=== PATIENT | female | born 1945 | race Caucasian/White ===

== ENCOUNTER → 2016-08-24 09:13 | Outpatient (CLI) | payer MEDICARE, OTHER ==
[2013-11-20 01:09] VITALS: BMI 24.2
[~2016-08-24 09:13] MED LIST: ALDACTONE50 MG PO; CIPRO500 MG PO; FLAGYL500 MG PO; FUROSEMIDE40 MG PO; KENALOG 0.1 % 115 GM TOPICAL; LEVSIN/ANASP0.125 MG PO; LOPRESSOR25 MG PO; MINERAL OIL25 ML OR; MIRALAX17 GM PO; RIBASPHERE200 MG PO; VALTREX500 MG PO; ZEPATIER PO; ZOFRAN4 MG PO
[2016-10-05 07:11] VITALS: BMI 20.7
== END | disposition home or self-care (01) ==
LOC: D.CT 09:13
DX: R93.5 Abnormal findings on diagnostic imaging of other abdominal regions, including retroperitoneum (principal)

== ENCOUNTER → 2016-09-23 08:18 | Outpatient (CLI) | payer MEDICARE, OTHER ==
[2013-11-20 01:09] VITALS: BMI 24.2
[2016-09-26 12:18] VITALS: BMI 21.6
== END | disposition home or self-care (01) ==
LOC: D.MRI 08:18
DX: K76.89 Other specified diseases of liver (principal)

== ENCOUNTER 2016-09-26 09:09 | Day surgery (SDC) | payer MEDICARE, OTHER ==
[~2016-09-26] VITALS: Ht 162.6 cm; Wt 57.3 kg
[~2016-09-26 09:09] MED LIST changes: -FUROSEMIDE40 MG PO; -KENALOG 0.1 % 115 GM TOPICAL; -RIBASPHERE200 MG PO; -ZEPATIER PO
[2016-09-26] MEDS ORDERED: FUROSEMIDE40 MG PO (12:00)
[2016-09-26] MEDS ORDERED: RIBASPHERE200 MG PO (12:00)
[2016-09-26] MEDS ORDERED: ZEPATIER PO (12:01)
[2016-09-26] MEDS ORDERED: KENALOG 0.1 % 115 GM TOPICAL (12:02)
[2016-09-26 12:18] VITALS: BP 124/63; Ht 162.6 cm; Wt 57.3 kg
[2016-09-26 12:52] LABS: BASOPHILS 1.1 % (0-2); EOSINOPHILS 2.1 % (0-7); HEMATOCRIT 38.7 % (36.0-48.0); HEMOGLOBIN 12.7 g/dL (12-16); IMMATURE GRANULOCYTES 0.2 % (0-5); MCHC 32.8 g/dL (31.0-37.0); MCV 97.5 fL (80.0-100.0); MONOCYTES 11.4 % (2-11); NEUTROPHILS 69.2 % (40-80); RBC 3.97 10x6/uL (4.00-5.40); RDW 12.9 % (11.5-14.5); WBC 4.4 10x3/uL (4.8-10.8)
[2016-09-26 12:53] LABS: PLATELET COUNT 252 10x3/uL (130-400)
[2016-09-26 13:07] LABS: APTT 34.8 SECONDS (22.8-39.4); INR 1.15 (0.85-1.17); PROTIME 14.6 SECONDS (11.6-15.0)
[2016-09-26 13:11] LABS: ALBUMIN 3.2 g/dL (3.4-5.0); ALKALINE PHOSPHATASE 110 U/L (46-116); ALT (SGPT) 36 U/L (10-68); CALC OSMOLALITY 270 mosm/kg (275-300); CALCIUM 8.7 mg/dL (8.5-10.1); CARBON DIOXIDE 26.5 mmol/L (21.0-32.0); CHLORIDE - SERUM 100 mmol/L (98-107); CREATININE - SERUM 0.7 mg/dL (0.6-1.3); GLUCOSE 94 mg/dL (74-106); POTASSIUM - SERUM 3.8 mmol/L (3.5-5.1); PROTEIN - SERUM 7.7 g/dL (6.4-8.2); SODIUM 136 mmol/L (136-145); UREA NITROGEN 9 mg/dL (7-18); eGFR NON AFRICAN AMERICAN 88 mL/min (90-120)
--- NOTE | 2016-09-26 15:05 | NUR ---
DISCHARGE INSTRUCTIONS REVIEWED WITH PATIENT, RIGHT FOREARM PIV DC'D WITH TIP INTACT. PATIENT DRESSING IN PERSONAL CLOTHING
--- NOTE | 2016-09-26 15:35 | NUR ---
DISCHARGED HOME VIA WHEELCHAIR TO PRIVATE VEHICLE WITH DAUGHTER
--- NOTE | 2016-09-27 10:00 | OP ---
PATIENT NAME: CHAPO FERNANDES MEDICAL RECORD: [id number] :49 LOCATION:D.OPS ADMISSION DATE: SURGEON: SANTI STEWART DO DATE OF OPERATION: 09/26/2016 PROCEDURE: Colonoscopy with biopsies. INDICATIONS FOR PROCEDURE: Hematochezia and hemorrhoids. SCOPE: [employer] video pediatric colonoscope. MEDICATIONS: Propofol 560 mg IV per anesthesia. ESTIMATED BLOOD LOSS: Less than 3 cc. FINDINGS: Informed consent was given. The patient was made comfortable with the above medication. After reaching an adequate level of sedation by slow IV push, the patient was placed on her left side. A digital rectal examination was performed and revealed some external hemorrhoids. The remainder of that digital rectal examination was normal. The scope was then advanced under direct visualization through the anus to the cecum. This was evidenced by appendiceal orifice and the ileocecal valve. The scope was then slowly withdrawn while the mucosa was carefully examined. There were some changes consistent with mild melanosis coli. Random biopsies were taken in the ascending colon to confirm this diagnosis. Other findings included severe diverticulosis of the descending and sigmoid colon. There were peridiverticular changes associated with the sigmoid colon, which made passage of the endoscope difficult. There were no polyps encountered this examination. On retroflexion of the colonoscope in the rectum, there were some small internal hemorrhoids, which were not bleeding. The scope was withdrawn from the patient in its entirety. The patient tolerated the procedure well and there were no complications. IMPRESSION: 1. Internal and external hemorrhoids, which were not bleeding. 2. Severe diverticulosis of the descending and sigmoid colon. 3. Melanosis coli, biopsies taken for confirmation. PLAN AND RECOMMENDATIONS: 1. Discharge home when recovery parameters are met. 2. Continue current medications. 3. High fiber diet. 4. Maintain regular soft bowel movements. 5. Consider supplementing diet with fiber 1-2 tablespoons daily. 6. Consider a surgical referral regarding the internal and external hemorrhoids. 7. Recall colonoscopy in 7 years for colon cancer screening purposes. TRANSINT:[id number] Voice Confirmation ID: [id number] DOCUMENT ID: [id number] OPERATIVE REPORT [id number] CHAPO FERNANDES SANTI STEWART DO at 1000 CC: [id number] DICTATION DATE: 09/26/16 5750 LIEN SEARCHER: 09/26/16 192 [facility] 09/26/[address] [facility] 191 [facility], [facility]901
== END 2016-09-26 15:35 | disposition home or self-care (01) ==
LOC: D.OPS 09:09
PROVIDERS: Anesthesiology
DX: K92.1 Melena (principal); I10 Essential (primary) hypertension; K21.9 Gastro-esophageal reflux disease without esophagitis; B19.20 Unspecified viral hepatitis C without hepatic coma; K64.4 Residual hemorrhoidal skin tags; K64.8 Other hemorrhoids; K57.90 Diverticulosis of intestine, part unspecified, without perforation or abscess without bleeding

== ENCOUNTER 2016-10-03 09:22 | Day surgery (SDC) | payer MEDICARE, OTHER ==
[~2016-10-03] VITALS: Ht 162.6 cm; Wt 52.3 kg
[~2016-10-03 09:22] MED LIST changes: +FUROSEMIDE40 MG PO; +KENALOG 0.1 % 115 GM TOPICAL; +RIBASPHERE200 MG PO; +ZEPATIER PO
[2016-10-03 11:08] LABS: BASOPHILS 2.3 % (0-2); EOSINOPHILS 3.4 % (0-7); HEMATOCRIT 37.9 % (36.0-48.0); HEMOGLOBIN 12.4 g/dL (12-16); IMMATURE GRANULOCYTES 0.2 % (0-5); MCH 32.5 pg (26.0-34.0); MCHC 32.7 g/dL (31.0-37.0); MCV 99.5 fL (80.0-100.0); MEAN PLATELET VOLUME 9.7 fL (7.4-10.4); MONOCYTES 8.5 % (2-11); NEUTROPHILS 66.6 % (40-80); PLATELET COUNT 258 10x3/uL (130-400); RBC 3.81 10x6/uL (4.00-5.40); RDW 13.9 % (11.5-14.5); WBC 5.3 10x3/uL (4.8-10.8)
[2016-10-03 11:14] LABS: ANION GAP 11.4 mmol/L (8-16); CALCIUM 8.8 mg/dL (8.5-10.1); CARBON DIOXIDE 28.1 mmol/L (21.0-32.0); CREATININE - SERUM 0.9 mg/dL (0.6-1.3); POTASSIUM - SERUM 3.5 mmol/L (3.5-5.1)
[2016-10-03 11:41] VITALS: BP 126/58; Ht 162.6 cm; Wt 52.3 kg
--- NOTE | 2016-10-03 14:10 | NUR ---
DISCHARGED HOME VIA WHEELCHAIR TO PRIVATE VEHICLE WITH DAUGHTER
--- NOTE | 2016-10-04 10:26 | OP ---
PATIENT NAME: CHAPO FERNANDES MEDICAL RECORD: [id number] :49 [facility] DATE: SURGEON: SANTI STEWART DO DATE OF OPERATION: 10/03/2016 PROCEDURE: EGD with biopsies. INDICATIONS FOR PROCEDURE: Dysphagia, heartburn, and nausea. SCOPE: [employer] video gastroscope. MEDICATIONS: Propofol 200 mg IV per anesthesia. ESTIMATED BLOOD LOSS: Less than 3 cc. FINDINGS: Informed consent was given. The patient was made comfortable with the above medication. After reaching an adequate level of sedation by slow IV push, the patient was placed on her left side. The endoscope was then advanced under direct visualization through the mouth to the second portion of the duodenum. The upper and middle thirds of the esophagus appeared normal. In the distal third of the esophagus, there was some small grade II esophageal varices without bleeding stigmata present. Just below this at the GE junction, there was some mild evidence of LA class A reflux induced esophagitis. There were no ring or stricture visualized throughout the entire esophagus. The endoscope was advanced into the stomach and retroflexed to view the cardia which revealed a small sliding hiatal hernia. The fundus and body of the stomach appeared normal other than some mild portal hypertensive gastropathy. In the antrum and prepyloric region of the stomach, there were a few shallow and superficial ulcerations. There were no bleeding stigmata associated with these ulcerations. Random gastric biopsies were taken to submit for histology and rule out H. pylori. The endoscope was advanced down into the bulb and second portion of the duodenum, both of which appeared normal. The scope was withdrawn from the patient. The patient tolerated the procedure well and there were no complications. IMPRESSION: 1. Grade II esophageal varices without bleeding stigmata. 2. Reflux esophagitis, LA class A. 3. Small sliding hiatal hernia. 4. Gastric ulcers, which were not bleeding and showed no bleeding stigmata. 5. Mild portal hypertensive gastropathy. PLAN AND RECOMMENDATIONS: 1. Discharge home when recovery parameters are met. 2. Schedule barium esophagram regarding the dysphagia. 3. Antacids will be beneficial in her case based on her symptomatology and her esophagitis as well as the gastric ulcers. This however could prevent absorption of her current treatment for her hepatitis C. This will need to be discussed with Dr. Varela before giving any antacid therapy. 4. We recommend repeat EGD in 1 year for surveillance of esophageal varices. 5. Further recommendations depending on findings at time of barium esophagram. 6. Of note, the patient is scheduled for a biopsy of a liver mass later this week. This will also influence decision to moving forward as far as surveillance endoscopies and further workup of conditions. OPERATIVE REPORT [id number] CHAPO FERNANDES TRANSINT:[id number] Voice Confirmation ID: [id number] DOCUMENT ID: [id number] SANTI STEWART DO at 1026 CC: [id number] DICTATION DATE: 10/03/16 1300 PLASTIC PROCESS TECHNICIAN: 10/03/16 2141 [facility] 10/03/16 [facility] [address] [place] [address]
== END 2016-10-03 14:10 | disposition home or self-care (01) ==
LOC: D.OPS 09:22
PROVIDERS: Anesthesiology
DX: R13.10 Dysphagia, unspecified (principal); I85.00 Esophageal varices without bleeding; K44.9 Diaphragmatic hernia without obstruction or gangrene; K25.9 Gastric ulcer, unspecified as acute or chronic, without hemorrhage or perforation; K76.6 Portal hypertension; K31.89 Other diseases of stomach and duodenum; I10 Essential (primary) hypertension; I25.10 Atherosclerotic heart disease of native coronary artery without angina pectoris; B19.20 Unspecified viral hepatitis C without hepatic coma; Z01.812 Encounter for preprocedural laboratory examination

== ENCOUNTER 2016-10-05 05:25 | Outpatient (CLI) | payer MEDICARE, OTHER ==
[~2016-10-05] VITALS: Ht 160 cm; Wt 53.2 kg
[2016-10-05 06:55] LABS: BASOPHILS 0.4 % (0-2); EOSINOPHILS 5.9 % (0-7); HEMATOCRIT 35.1 % (36.0-48.0); HEMOGLOBIN 11.4 g/dL (12-16); IMMATURE GRANULOCYTES 0.2 % (0-5); LYMPHOCYTES 16.2 % (15-50); MCH 32.1 pg (26.0-34.0); MCHC 32.5 g/dL (31.0-37.0); MCV 98.9 fL (80.0-100.0); MEAN PLATELET VOLUME 9.7 fL (7.4-10.4); MONOCYTES 12.6 % (2-11); NEUTROPHILS 64.7 % (40-80); PLATELET COUNT 238 10x3/uL (130-400); RBC 3.55 10x6/uL (4.00-5.40); RDW 13.7 % (11.5-14.5); WBC 4.9 10x3/uL (4.8-10.8)
[2016-10-05 07:11] VITALS: BP 143/67; Ht 160 cm; Wt 53.2 kg
[2016-10-05 07:14] LABS: ANION GAP 12.2 mmol/L (8-16); CALCIUM 8.4 mg/dL (8.5-10.1); CARBON DIOXIDE 25.1 mmol/L (21.0-32.0); CREATININE - SERUM 0.9 mg/dL (0.6-1.3); POTASSIUM - SERUM 3.3 mmol/L (3.5-5.1)
[2016-10-05 07:19] LABS: APTT 33.4 SECONDS (22.8-39.4); INR 1.22 (0.85-1.17); PROTIME 15.3 SECONDS (11.6-15.0)
--- NOTE | 2016-10-05 17:19 | NUR ---
0910--ALL VITAL SIGNS CHARTED ON POST PROCEDURE VITAL SIGN SHEET ON CHART. ISMA MCCARTHY 1300--IV DC'D, PT UP TO DRESS AT THIS TIME. ISMA MCCARTHY 1320--DISCHARGE INSTRUCTIONS GIVEN, PT VERBALIZES UNDERSTANDING. PT OFF UNIT VIA WC. ISMA MCCARTHY
== END 2016-10-05 13:20 | disposition home or self-care (01) ==
LOC: D.OPS 05:25 → D.CT 08:00 → D.OPS 08:00
PROVIDERS: Radiology Diagnostic Radiology
DX: K76.9 Liver disease, unspecified (principal); K74.69 Other cirrhosis of liver; B19.20 Unspecified viral hepatitis C without hepatic coma; R18.8 Other ascites

== ENCOUNTER 2016-11-02 09:02 | Outpatient (CLI) | payer MEDICARE, OTHER ==
[~2016-11-02] VITALS: Ht 160 cm; Wt 52.3 kg
[2016-11-02] VITALS (8 sets, daily range): BP systolic 105–147; BP diastolic 53–84; Ht 160 cm; Wt 52.3 kg
--- NOTE | ~2016-11-02 | HEMODYNAMI ---
PATIENT:CHAPO FERNANDES MEDICAL RECORD: [id number] : 49 LOCATION:[facility]# [id number] ADMISSION DATE: 11/02/16 Generatedon:11/02/201615:12 Patient name: CHAPO FERNANDES Patient #: [id number] SSN: : 1945 Date of study: 11/02/2016 Page: Of Hemodynamic Procedure Report Patient Data Patient Demographics Procedure consent was obtained First Name: CHAPO Gender: Female Last Name: DENA : 1945 [facility] Initial: J Age: 71 year(s) Patient #: [id number] Race: Unknown Additional ID: [id number] Contact details [address]: [address] [place] [address] State: [place] City: [facility] [place], [place] Zip code: [address] Admission Admission Data Admission Date: 11/02/2016 Admission Time: 9:02 Room #: [facility] Procedure Procedure Types Cath Procedure Peripheral Cath Diagnostic Procedure Miscellaneous Procedure Description Procedure Date Procedure Date: 11/02/2016 Procedure Start Time: 13:45 Procedure Staff Name Function Alejandro Eaton MD Performing Physician Raquel Almaraz RT Scrub Caitlin Oliver RN Nurse Apolinar Persaud RT Monitor Procedure Data Cath Procedure Fluoroscopy Diagnostic fluoroscopy Total fluoroscopy Time: time: 18.7 min 18.7 min Diagnostic fluoroscopy Total fluoroscopy dose: dose: 1033 mGy 1033 mGy Contrast Material Contrast Material Type Amount (ml) Isovue 300 97 Entry Location Entry Primary Successful Side Size Upsize Upsize Entry Closure Succes sful Closure Location (Fr) 1 (Fr) 2 (Fr) Remarks Device Remarks Femoral Right 5 Fr Exoseal artery Diagnostic catheters Device Type Used For End Catheter Placement Merit ULTRA BOLUS FLUSH 5Fr 65CM catheter Merit Impress 5Fr SIM 1 Catheter Procedure Medications Medication Administration Route Dosage Fentanyl I.V. 50 mcg Versed I.V. 1 mg Nitroglycerin IC/IA I.A. 250 mcg Fentanyl I.V. 50 mcg Versed I.V. 1 mg Hemodynamics Rest Heart Rate: 81 (bpm) Snapshots Pre Cath Intra NCS Post Cath Vital Signs Time Heart Resp SPO2 NIBP (mmHg) Rhythm Pain Sedation Rate (ipm) (%) Status Level (bpm) 13:28:24 90 15 95 120/46(100) NSR 0 (11) 10(A) , No pain 13:32:34 76 19 97 121/60(95) NSR 0 (11) 10(A) , No pain 13:36:44 77 21 94 122/60(99) NSR 0 (11) 10(A) , No pain 13:40:50 85 25 96 139/74(111) NSR 0 (11) 10(A) , No pain 13:45:08 80 17 93 125/56(102) NSR 0 (11) 10(A) , No pain 13:49:20 80 17 95 124/62(96) NSR 0 (11) 10(A) , No pain 13:53:30 79 16 93 118/63(94) NSR 0 (11) 10(A) , No pain 13:57:40 77 17 93 112/59(89) NSR 0 (11) 10(A) , No pain 14:01:48 73 17 93 113/57(79) NSR 0 (11) 10(A) , No pain 14:05:55 77 10 98 110/56(92) NSR 0 (11) 10(A) , No pain 14:10:03 75 13 96 113/56(92) NSR 0 (11) 10(A) , No pain 14:14:13 75 15 99 109/53(82) NSR 0 (11) 10(A) , No pain 14:18:19 74 15 96 116/59(90) NSR 0 (11) 10(A) , No pain 14:22:31 74 13 97 116/54(90) NSR 0 (11) 10(A) , No pain 14:26:43 76 13 95 102/53(68) NSR 0 (11) 9(A) , No pain 14:30:49 74 12 97 91/52(70) NSR 0 (11) 9(A) , No pain 14:34:50 72 10 97 102/54(77) NSR 0 (11) 9(A) , No pain 14:38:58 71 15 96 104/49(79) NSR 0 (11) 9(A) , No pain 14:43:02 75 13 96 108/59(79) NSR 0 (11) 9(A) , No pain 14:47:12 74 12 98 98/50(75) NSR 0 (11) 10(A) , No pain 14:51:16 74 12 99 108/56(84) NSR 0 (11) 10(A) , No pain 14:55:19 78 16 99 113/66(88) NSR 0 (11) 10(A) , No pain 14:59:27 73 12 99 110/60(86) NSR 0 (11) 10(A) , No pain 15:03:35 72 16 100 107/56(87) NSR 0 (11) 10(A) , No pain 15:07:39 99 114/65(92) NSR 0 (11) 10(A) , No pain Medications Time Medication Route Dose Verified Delivered Reason Notes Effec tiveness by by 13:50:14 Fentanyl I.V. 50 Caitlin Caitlin for sedation mcg Melody Oliver RN, RN 13:50:28 Versed I.V. 1 mg Caitlin Caitlin for sedation Melody Oliver RN, RN 14:23:03 Nitroglycerin I.A. 250 Caitlin Alejandro for IC/IA mcg Melody godinez RN, MD 14:25:05 Fentanyl I.V. 50 Caitlni Alejandro for sedation mcg Melody Eaton RN, MD 14:25:21 Versed I.V. 1 mg Caitlin Alejandro for sedation Melody Eaton RN, MD Procedure Log Time Note 13:18:23 Apolinar Persaud RT (R) (CV) sent for patient. Start room use. 13:18:34 Time tracking: Regular hours 13:18:40 Plan of Care:Hemodynamics will remain stable., Cardiac rhythm will remain stable., Comfort level will be maintained., Respiratory function will remain adequate., Patient/ family verbilizes understanding of procedure., Procedure tolerated without complication., Recovers from procedure without complications.. 13:18:48 Patient received from Outpatients to IR Alert and oriented. Tansferred to table in Supine position. 13:18:49 Correct patient and procedure confirmed by team. 13:18:51 Signed procedure consent form obtained from patient. 13:18:52 ECG and BP/O2 sat monitors applied to patient. 13:18:53 Full Disclosure recording started 13:18:53 - 13:18:57 H&P Date Dictated: 11/02/2016 Within 30 days and on chart.. 13:18:58 Pre-procedure instructions explained to patient. 13:18:58 Pre-op teaching completed and patient verbalized understanding. 13:19:00 Family in waiting room. 13:19:02 Patient NPO since Midnight. 13:22:55 Is the patient allergic to Iodine/contrast media? No. 13:22:58 Is patient on blood thinner?No 13:23:04 Patient diabetic? No. 13:23:05 - 13:23:05 ----Pre-sedation anethsthesia assessment.---- 13:23:09 Previous problem with sedation/anesthesia? No ? 13:23:10 Snore? Yes 13:23:12 Sleep apnea? No 13:23:13 Deviated septum? No 13:23:14 Opens mouth fully? Yes 13:23:15 Sticks out tongue? Yes 13:23:17 Airway obstruction? No ? 13:23:20 - 13:23:21 Dentures? No ? 13:23:22 - 13:25:42 Pre procedure: right dorsailis pedis pulse Doppler 13:25:47 Pre procedure: right posterior tibial pulse Doppler 13:25:55 Use device set IR Diagnostic 13:25:56 Sterile Angiographic Pack opened to sterile field. 13:25:57 Bag Decanter opened to sterile field. 13:25:57 Acist Manifold opened to sterile field. 13:25:58 Acist Hand Control opened to sterile field. 13:25:58 Acist Syringe opened to sterile field. 13:26:15 Sharps counted by scrub and verified by R.N. 13:26:15 Alarms reviewed by R. N. 13:26:19 Right groin area was prepped with chlora-prep and draped in sterile fashion 13:26:26 Patient pain scale 0/10 no pain. 13:26:40 IV patent on arrival in left hand with 0.9% NaCl at KVO. 13:27:10 Baseline sample Acquired. 13:27:10 Vital chart was started 13:27:14 Rhythm: sinus rhythm 13:40:52 Physician arrived 13:40:54 --------ALL STOP TIME OUT------ 13:40:55 Final Timeout: patient, procedure, and site verified with staff and physician. All members of the team are in agreement. 13:40:57 Right groin site verified by team. 13:41:08 Physical assessment completed. ASA score P 3 - A patient with severe systemic disease as per Alejandro Eaton MD. 13:41:12 Sedation plan: IV Moderate Sedation Versed, Fentanyl 13:45:04 Procedure started. 13:45:07 Local anesthetic to right femoral artery with Lidocaine 1% by Alejandro Eaton MD.INITIAL ACCESS ONLY 13:45:13 STOPCOCK 3-WAY LARGE BORE opened to sterile field. 13:45:13 TUBING, CONTRAST INJCTN HI PRES opened to sterile field. 13:45:14 Cook WellocitiesSON 145cm guide wire opened to sterile field. 13:45:14 Micropuncture VSI 4FR kit opened to sterile field. 13:45:15 Terumo 5Fr [place] Sheath opened to sterile field. 13:46:06 A 5 Fr sheath was inserted into the Right Femoral artery 13:50:14 Fentanyl 50 mcg I.V. was administered by Caitlin Oliver RN; for sedation; 13:50:28 Versed 1 mg I.V. was administered by Caitlin Oliver RN; for sedation; 13:52:21 A Discovery Machine ULTRA BOLUS FLUSH 5Fr 65CM catheter was advanced over the wire and used for . 13:52:36 [place] Sci TRANSEND STEERABLE guide wire opened to sterile field. 13:59:02 A Discovery Machine Impress 5Fr SIM 1 Catheter was advanced over the wire and used for . 13:59:06 RENEGADE HI-THA microcatheter opened to sterile field. 13:59:22 [place] Sci TRANSEND STEERABLE guide wire opened to sterile field. 13:59:23 Copilot Bleedback Control Valve opened to sterile field. 14:10:20 Terumo GT DOUBLE ANGLE .018 glide wire opened to sterile field. 14:23:03 Nitroglycerin IC/IA 250 mcg I.A. was administered by Alejandro Eaton MD; for vasodilation; 14:25:05 Fentanyl 50 mcg I.V. was administered by Alejandro Eaton MD; for sedation; 14:25:21 Versed 1 mg I.V. was administered by Alejandro Eaton MD; for sedation; 14:37:08 BEADS LC M1 100-300UM opened to sterile field. 14:37:11 BEADS LC M1 100-300UM opened to sterile field. 14:45:00 EMBO PARTICLES 250-355 MICRONS opened to sterile field. 14:51:45 Cordis 5Fr Exoseal opened to sterile field. 14:52:40 Sheath removed intact; hemostasis achieved with Exoseal to the Right Femoral artery. 14:54:07 Procedure ended.(Physican Out) 14:54:45 Fluoroscopy time 18.70 minutes. 14:54:52 Fluoroscopy dose: 1033 mGy 14:54:52 Flurop Dose total: 1033 14:55:22 Contrast amount:Isovue 300 97ml. 14:55:25 Sharps counted by scrub and verified by R.N. 14:55:29 Insertion/operative site no bleeding no hematoma. 14:55:33 Post-op/insertion site Right Femoral artery dressed using a 4 x 4 and Tegaderm. 14:55:36 Post right femoral artery:stable 14:55:38 Post Procedure Pulses reassessed and unchanged 14:55:42 Post-procedure physical assessment completed. ASA score P 3 - A patient with severe systemic disease as per Alejandro Eaton MD. 14:55:45 Post procedure rhythm: sinus rhythm 15:09:53 Procedure and supply charges have been captured, reviewed, submitted an d are correct. 15:09:54 Post procedure instruction explained to patient.Patient verbalizes understanding. 15:09:59 Report given to Med/Surg. 15:10:02 Patient transfered to Med/Surg with Bed. 15:12:01 Vital chart was stopped Device Usage Item Name Manufacture Quantity Catalog Number Hospital Part Current M inimal Lot# / Charge Number Stock Stock Serial# Code Sterile Cardinal 1 [id number] 5 Angiographic Health Pack Bag Decanter Microtek 1 [id number] 55890 260358 5 Medical Inc. Acist Acist Medical 1 31721 090202 402548 192740 5 Manifold Systems Inc Acist Hand Acist Medical 1 28683 280642 325903 796842 5 Control Systems Inc Acist Syringe Acist Medical 1 85524 872557 387607 596679 2 0 Systems Inc STOPCOCK [place] Medical 1 [id number] 356148 0151 667586 5 [id number] 3-WAY LARGE BORE TUBING, CliniCast 1 [id number] 235153 494923 273596 5 CONTRAST INJCTN HI PRES [facility] Medical 1 [id number] 131907 988868 5 [id number] 145cm guide wire Micropuncture VSI VASCULAR 1 [id number] 757544 269014 5 VSI 4FR kit SOLUTIONS Terumo 5Fr Terumo 1 FMH002 344936 824464 715258 4 0 [place] Sheath Discovery Machine ULTRA Discovery Machine Medical 1 [id number] 339303 383803 5 BOLUS FLUSH 5Fr 65CM catheter [place] Sci [place] 2 [id number] 822027 069912 5 [id number] TRANSEND Scientific STEERABLE guide wire Merit Impress Discovery Machine Medical 1 [id number] 798852 031224 647886 5 5Fr SIM 1 Catheter RENEGADE [place] 1 [id number] 256100 033049 5 [id number] HI-THA Scientific microcatheter Copilot [place] 1 4431471 074415 594830 071103 5 Bleedback Vascular Control Valve Terumo GT Terumo 1 [id number] 252500 475847 5 840740 DOUBLE ANGLE .018 glide wire BEADS LC M1 BIOCOMPATIBLES 2 [id number] 440637 801845 327691 5 100-300UM INC EMBO [place] 1 [id number] 157853 1713 588461 5 PARTICLES Scientific 250-355 MICRONS Cordis 5Fr Cardinal 1 EX500 844061 270419 175928 1 0 [id number] Exoseal Health Signature Audit [place] Stage Time Signature Unsigned Intra-Procedure 11/02/2016 Apolinar 3:11:58 PM Hung RT (R) (CV) Signatures Monitor : Apolinar Signature : Hung RT Date : Time : [facility] [address] [place] [address]
[2016-11-02 09:39] LABS: BASOPHILS 0.8 % (0-2); EOSINOPHILS 3.7 % (0-7); HEMATOCRIT 35.8 % (36.0-48.0); HEMOGLOBIN 11.2 g/dL (12-16); IMMATURE GRANULOCYTES 0.2 % (0-5); LYMPHOCYTES 14.8 % (15-50); MCH 32.3 pg (26.0-34.0); MCHC 31.3 g/dL (31.0-37.0); MCV 103.2 fL (80.0-100.0); MEAN PLATELET VOLUME 8.6 fL (7.4-10.4); MONOCYTES 13.6 % (2-11); NEUTROPHILS 66.9 % (40-80); PLATELET COUNT 262 10x3/uL (130-400); RBC 3.47 10x6/uL (4.00-5.40); RDW 14.6 % (11.5-14.5); WBC 5.1 10x3/uL (4.8-10.8)
[2016-11-02] MEDS ORDERED: ALDACTONE50 MG PO (09:51)
[2016-11-02 09:54] LABS: ANION GAP 10.7 mmol/L (8-16); CALCIUM 8.8 mg/dL (8.5-10.1); CARBON DIOXIDE 25.1 mmol/L (21.0-32.0); POTASSIUM - SERUM 3.8 mmol/L (3.5-5.1)
[2016-11-02] MEDS ORDERED: DULCOLAX STOOL100 MG PO (09:55)
[2016-11-02] MEDS ORDERED: GLYCERIN A1 SUPP.REC RC (09:55)
[2016-11-02 10:12] LABS: APTT 33.6 SECONDS (22.8-39.4); INR 1.2 (0.85-1.17); PROTIME 15.1 SECONDS (11.6-15.0)
[2016-11-02] MEDS ORDERED: VITAMIN D3400 UNI1 PO (10:32)
[2016-11-02] MEDS ORDERED: MULTIPLE VITAMI1 TA1 PO (10:32)
[2016-11-02] MEDS ORDERED: FERROUS SULFAT325 MG PO (10:33)
[2016-11-02 10:35] LABS: ALBUMIN 3.2 g/dL (3.4-5.0); BILIRUBIN - DIRECT 0.39 mg/dL (0.00-0.30); BILIRUBIN - INDIRECT 1.31 mg/dL (0.00-1.00); BILIRUBIN - TOTAL 1.7 mg/dL (0.2-1.3); PROTEIN - SERUM 7.9 g/dL (6.4-8.2)
--- NOTE | 2016-11-02 14:30 | NUR ---
RESTING IN BED WATCHING TV. AT BEDSIDE. DRESSING TO R GROIN CDI. +2 PEDAL PULSES BILAT. BED LOW, CALL LIGHT IN REACH, DENIES NEEDS. CPOC.
--- NOTE | 2016-11-02 15:30 | NUR ---
PT REC'D TO ROOM VIA BED. AAOX4. NO COMPLAINTS OF PAIN. 3L OF O2 VIA NC. PIV TO L AC FREE OF REDNESS AND SWELLING. DRESSING TO R GROIN CDI. +2 PEDAL PULSES BILAT. BRISK CAP REFILL <3 SECONDS. LAYING FLAT. VSS. BED LOW, CALL LIGHT IN REACH, DENIES NEEDS. CPOC.
--- NOTE | 2016-11-02 18:43 | NUR ---
ASSISTED PT ONTO BED VANESSA. ABLE TO VOID LARGE AMOUNT OF CLEAR SHIRIN URINE. BRET CARE DONE PER SELF. BED LOW, CALL LIGHT IN REACH, DENIES NEEDS. CPOC.
--- NOTE | 2016-11-02 19:25 | NUR ---
RECIEVED SHIFT REPORT. PT IS LYING IN BED. ALERT AND ORIENTED AND ABLE TO VERBALIZE NEEDS. IV IS PATENT AND SALINE LOC AT THIS TIME. PT IS AMBULATORY WITH ASSISTANCE. PT DENIES ANY PAIN AT THIS TIME. NO NEEDS ARE VERBALIZED AT THIS TIME. WILL CONTINUE TO MONITOR. SIDE RAILS ARE UP X 2. BED IS IN LOWEST POSITION. CALL LIGHT IS WITHIN REACH.
--- NOTE | 2016-11-02 21:44 | NUR ---
SHIFT ASSESSMENT COMPLETED. NIGHT MEDS GIVEN WITH NO PROBLEMS. PT REQUESTING PRN RESTORIL FOR INSOMNIA. ADMINISTERED PER ORDER. DENIES FURTHER NEEDS AT THIS TIME. WILL MONITOR. SIDE RAILS X 2. BED LOW. CALL LIGHT IN REACH.
[2016-11-03] VITALS: BP 98/40
[2016-11-03 04:00] VITALS: BP 122/62
[2016-11-03 05:55] LABS: ANION GAP 12.8 mmol/L (8-16); CALCIUM 8.3 mg/dL (8.5-10.1); POTASSIUM - SERUM 3.8 mmol/L (3.5-5.1)
[2016-11-03 07:53] VITALS: BP 120/58
--- NOTE | 2016-11-03 08:47 | NUR ---
PT ASSESSMENT COMPLETE AWAKE AND ALERT ORINETED X 3 LUNGS CLAER BIALTERALLY VOICES ALL NEEDS TO STAFF LUNGS CLAER BILATERALY HAS DRESSING INTACT TO RIGHT GROIN FROM CHEMO EMBELIZATION YESTERDAY DENEIS PAIN OR DISCOMFORT NO TNEDERNESS TO ABDOMINAL PALPATION.
--- NOTE | 2016-11-03 10:43 | NUR ---
PT RESTING IN BED AT THIS TIME, MAR MILLAN RN AT BEDSIDE. PT HAS NO COMPLAINTS OF PAIN OR DISCOMFORT AT THIS TIME. BED IN LOW POSITION AND CALL LIGHT WITHIN REACH. WILL CONTINUE TO MONITOR.
--- NOTE | 2016-11-03 11:51 | NUR ---
PT AWAITING DISCHARGE ORDERS RECIEVED. DWILL DISCHARGE PER ORDER. WITH FOLLOW UP APPT PER ORDER
--- NOTE | 2016-11-03 13:20 | NUR ---
PT DISCHARGED ALL DISCHARGE INSTRUCTIONS GIVEN AND UNDERSTANDING EXPRESSED FOR FOLLOW UP CARE.
== END 2016-11-03 13:21 | disposition home or self-care (01) ==
LOC: OBSVTIME → D.SDCHOLD 09:02 → D.OPS 09:02 → D.MS 09:02 → OBSVTIME 09:02 → D.SDCHOLD 09:02 → EDSTATUS 13:00 → D.SDCHOLD 13:00 → D.MS 15:31 → D.OPS 11-03 13:21 → D.MS 11-03 13:21
PROVIDERS: Radiology Diagnostic Radiology
DX: C22.0 Liver cell carcinoma (principal); K74.60 Unspecified cirrhosis of liver; B19.20 Unspecified viral hepatitis C without hepatic coma

== ENCOUNTER 2016-12-12 05:45 | Outpatient (CLI) | payer MEDICARE, OTHER ==
[~2016-12-12] VITALS: Ht 160 cm; Wt 52.3 kg
[~2016-12-12 05:45] MED LIST changes: +DULCOLAX STOOL100 MG PO; +FERROUS SULFAT325 MG PO; +GLYCERIN A1 SUPP.REC RC; +MULTIPLE VITAMI1 TA1 PO; +VITAMIN D3400 UNI1 PO
[2016-12-12] MEDS ORDERED: PROBIOTIC1 EAC1 PO (06:36)
[2016-12-12] MEDS ORDERED: ZANTAC150 MG PO (06:37)
[2016-12-12] MEDS ORDERED: ALDACTONE50 MG PO (06:38)
[2016-12-12] MEDS ORDERED: GAS-X180 MG PO (06:38)
[2016-12-12] MEDS ORDERED: FLUTICASONE PRO16 GM NASAL (06:41)
[2016-12-12] MEDS ORDERED: SUPER B COMPLE150 MG PO (06:41)
[2016-12-12] MEDS ORDERED: KENALOG 0.1 % 115 GM TOPICAL (06:44)
[2016-12-12 07:06] VITALS: BP 134/61; Ht 160 cm; Wt 52.3 kg
[2016-12-12 08:13] LABS: BASOPHILS 0.9 % (0-2); EOSINOPHILS 3.3 % (0-7); HEMATOCRIT 34.4 % (36.0-48.0); IMMATURE GRANULOCYTES 0.2 % (0-5); LYMPHOCYTES 12.9 % (15-50); MCH 32.6 pg (26.0-34.0); MCV 102.1 fL (80.0-100.0); MEAN PLATELET VOLUME 9.3 fL (7.4-10.4); MONOCYTES 15.8 % (2-11); NEUTROPHILS 66.9 % (40-80); PLATELET COUNT 215 10x3/uL (130-400); RBC 3.37 10x6/uL (4.00-5.40); WBC 4.5 10x3/uL (4.8-10.8)
[2016-12-12 08:21] LABS: APTT 33.3 SECONDS (22.8-39.4); INR 1.17 (0.85-1.17); PROTIME 14.8 SECONDS (11.6-15.0)
[2016-12-12 08:23] LABS: ANION GAP 17.3 mmol/L (8-16); CALCIUM 9.1 mg/dL (8.5-10.1); CARBON DIOXIDE 22.8 mmol/L (21.0-32.0); CREATININE - SERUM 0.9 mg/dL (0.6-1.3); POTASSIUM - SERUM 4.1 mmol/L (3.5-5.1)
--- NOTE | 2016-12-12 09:35 | NUR ---
RECEIVED FROM IR POST PARACENTESIS. RUQ DRESSING C/D/I, NO DRAINAGE NOTED. DENIES NAUSEA. REGULAR DIET SERVED. SEE FREQUENT VITAL SIGN SHEET FOR VITAL SIGNS.
== END 2016-12-12 11:30 | disposition home or self-care (01) ==
LOC: D.OPS 05:45 → D.SP 08:00 → D.OPS 11:30
PROVIDERS: Radiology Diagnostic Radiology
DX: K71.51 Toxic liver disease with chronic active hepatitis with ascites (principal); B19.20 Unspecified viral hepatitis C without hepatic coma

== ENCOUNTER → 2017-01-09 07:24 | Outpatient (CLI) | payer MEDICARE, OTHER ==
[2016-12-12 07:06] VITALS: BMI 20.4
[~2017-01-09 07:24] MED LIST changes: +FLUTICASONE PRO16 GM NASAL; +GAS-X180 MG PO; +PROBIOTIC1 EAC1 PO; +SUPER B COMPLE150 MG PO; +ZANTAC150 MG PO
== END | disposition home or self-care (01) ==
LOC: D.CT 07:24
PROVIDERS: Radiology Diagnostic Radiology
DX: C22.0 Liver cell carcinoma (principal)

== ENCOUNTER 2017-01-16 07:27 | Outpatient (CLI) | payer MEDICARE, OTHER ==
[~2017-01-16] VITALS: Ht 160 cm; Wt 50.0 kg
[2017-01-16] MEDS ORDERED: POTASSIUM99 M1 PO (09:36)
[2017-01-16 09:44] VITALS: BP 124/59; Ht 160 cm; Wt 50.0 kg
[2017-01-16 09:46] LABS: BASOPHILS 0.6 % (0-2); EOSINOPHILS 3.3 % (0-7); HEMATOCRIT 36.2 % (36.0-48.0); HEMOGLOBIN 11.5 g/dL (12-16); IMMATURE GRANULOCYTES 0.3 % (0-5); LYMPHOCYTES 14.1 % (15-50); MCH 32.8 pg (26.0-34.0); MCHC 31.8 g/dL (31.0-37.0); MCV 103.1 fL (80.0-100.0); MEAN PLATELET VOLUME 8.9 fL (7.4-10.4); MONOCYTES 14.4 % (2-11); NEUTROPHILS 67.3 % (40-80); PLATELET COUNT 193 10x3/uL (130-400); RBC 3.51 10x6/uL (4.00-5.40); RDW 12.9 % (11.5-14.5); WBC 3.6 10x3/uL (4.8-10.8)
[2017-01-16 09:53] LABS: ANION GAP 11.4 mmol/L (8-16); CALCIUM 8.5 mg/dL (8.5-10.1); CARBON DIOXIDE 25.9 mmol/L (21.0-32.0); POTASSIUM - SERUM 4.3 mmol/L (3.5-5.1)
[2017-01-16 10:10] LABS: APTT 33.1 SECONDS (22.8-39.4); INR 1.15 (0.85-1.17); PROTIME 14.6 SECONDS (11.6-15.0)
--- NOTE | 2017-01-16 16:21 | NUR ---
1515 IV DC'ED WITH CATH INTACT & 450ML LTC. DRESSING. Santa AKINS R.N. 1525 DRESSED. AWAKE & ALERT. GIVEN DISCHARGE INFORMATION INCLUDING: MED REC., D/C INSTRUCTIONS FOR CT GUIDED BIOPSY, D/C INSTRUCTIONS FOR ABDOMINAL PARACENTESIS, & [facility] [place] OPS D/C INSTRUCTIONS. PT VOICED UNDERSTANDING. WAITING FOR RIDE HOME. Santa BlancoNIsabela 1530 TO PRIVATE CAR PER WHEELCHAIR BY Angelia MUÑOZ R.N.. Santa AKINS R.N.
== END 2017-01-16 15:35 | disposition home or self-care (01) ==
LOC: D.OPS 07:27 → D.CT 08:00 → D.OPS 11:00 → D.SP 11:00 → D.OPS 15:35
PROVIDERS: Radiology Diagnostic Radiology
DX: K74.60 Unspecified cirrhosis of liver (principal); B19.20 Unspecified viral hepatitis C without hepatic coma; D13.4 Benign neoplasm of liver; Z01.812 Encounter for preprocedural laboratory examination

== ENCOUNTER → 2017-04-20 08:25 | Outpatient (CLI) | payer MEDICARE, OTHER ==
[2017-01-16 09:44] VITALS: BMI 19.5
[~2017-04-20 08:25] MED LIST changes: +POTASSIUM99 M1 PO
== END | disposition home or self-care (01) ==
LOC: D.CT 08:25
DX: C22.0 Liver cell carcinoma (principal)

== ENCOUNTER → 2017-07-05 07:57 | Outpatient (CLI) | payer MEDICARE, OTHER ==
[2017-01-16 09:44] VITALS: BMI 19.5
== END | disposition home or self-care (01) ==
LOC: D.CT 07:57
DX: C22.0 Liver cell carcinoma (principal); K74.60 Unspecified cirrhosis of liver

== ENCOUNTER → 2017-11-06 11:43 | Outpatient (CLI) | payer MEDICARE, OTHER ==
[2017-01-16 09:44] VITALS: BMI 19.5
[~2017-11-06 11:43] MED LIST changes: +BENADRYL25 MG PO
== END | disposition home or self-care (01) ==
LOC: D.CT 11:43
DX: C22.0 Liver cell carcinoma (principal); K74.60 Unspecified cirrhosis of liver

== ENCOUNTER → 2017-11-15 07:53 | Outpatient (CLI) | payer MEDICARE, OTHER ==
[2017-01-16 09:44] VITALS: BMI 19.5
[2017-11-15 09:15] LABS: ALBUMIN 3.9 g/dL (3.4-5.0); BILIRUBIN - DIRECT 0.21 mg/dL (0.00-0.30); BILIRUBIN - INDIRECT 0.54 mg/dL (0.00-1.00); BILIRUBIN - TOTAL 0.75 mg/dL (0.2-1.3); PROTEIN - SERUM 8.8 g/dL (6.4-8.2)
== END | disposition home or self-care (01) ==
LOC: D.LAB 07:53
PROVIDERS: Radiology Diagnostic Radiology
DX: C22.0 Liver cell carcinoma (principal)

== ENCOUNTER 2017-12-20 06:00 | Outpatient (CLI) | payer MEDICARE, OTHER ==
[~2017-12-20] VITALS: Ht 160 cm; Wt 50.9 kg
--- NOTE | ~2017-12-20 | HEMODYNAMI ---
PATIENT:CHAPO FERNANDES MEDICAL RECORD: [id number] : 49 LOCATION:[facility]# [id number] ADMISSION DATE: 12/20/17 Generatedon:12/20/201710:13 Patient name: CHAPO FERNANDES Patient #: [id number] SSN: : 1945 Date of study: 12/20/2017 Page: Of Hemodynamic Procedure Report Patient Data Patient Demographics Procedure consent was obtained First Name: CHAPO Gender: Female Last Name: DENA : 1945 [facility] Initial: J Age: 72 year(s) Patient #: [id number] Race: Unknown Additional ID: [id number] Contact details Address: [address] [place] [address] State: [place] City: [facility] Zip code: [address] Admission Admission Data Admission Date: 12/20/2017 Admission Time: 6:00 Room #: [facility] Procedure Procedure Types Cath Procedure Peripheral Cath Diagnostic Procedure Miscellaneous Procedure Description Procedure Date Procedure Date: 12/20/2017 Procedure Start Time: 8:45 Procedure Staff Name Function Alejandro Eaton MD Performing Physician Apolinar Persaud RT Monitor Dulce Maria Elliott RT Scrub Loraine Gregg RN Nurse May Sethi RN Nurse Procedure Data Cath Procedure Fluoroscopy Diagnostic fluoroscopy Total fluoroscopy Time: time: 18.7 min 18.7 min Diagnostic fluoroscopy Total fluoroscopy dose: 574 dose: 574 mGy mGy Contrast Material Contrast Material Type Amount (ml) Isovue 300 0 Entry Location Entry Primary Successful Side Size Upsize Upsize Entry Closure Succes sful Closure Location (Fr) 1 (Fr) 2 (Fr) Remarks Device Remarks Femoral Right 5 Fr artery Diagnostic catheters Device Type Used For End Catheter Placement Merit Impress 5Fr SIM 1 Catheter ([id number]) Procedure Medications Medication Administration Route Dosage Heparin Flush Bag added to field 3 bags (1000units/500ml NS) Lidocaine 1% added to field 20 Oxygen etCO2 Nasal cannula 4 l/min unlisted medication I.V. 3.375 g Versed I.V. 1 mg Fentanyl I.V. 50 mcg Versed I.V. 1 mg Fentanyl I.V. 50 mcg Versed I.V. 0.5 mg Nitroglycerin IC/IA I.A. 200 mcg Doxorubicin I.A. 100 mg Hemodynamics Rest Heart Rate: 60 (bpm) Snapshots Pre Cath Intra NCS Post Cath Vital Signs Time Heart Resp SPO2 etCO2 NIBP (mmHg) Rhythm Pain Sedation Rate (ipm) (%) (mmHg) Status Level (bpm) 8:26:18 15 97 21.7 131/55(84) NSR 0 (11) 10(A) , No pain 8:31:13 58 12 100 26.2 118/60(110) NSR 0 (11) 10(A) , No pain 8:35:29 60 7 99 30.7 115/51(96) NSR 0 (11) 10(A) , No pain 8:39:41 61 14 100 20.2 119/58(92) NSR 0 (11) 10(A) , No pain 8:43:53 59 25 100 26.2 117/60(92) NSR 0 (11) 10(A) , No pain 8:48:05 63 13 99 0.7 119/60(94) NSR 0 (11) 10(A) , No pain 8:52:17 62 20 98 12 116/56(88) NSR 0 (11) 10(A) , No pain 8:56:31 59 19 97 0.7 91/49(72) NSR 0 (11) 10(A) , No pain 9:00:35 59 8 92 39 92/50(77) NSR 0 (11) 10(A) , No pain 9:04:38 56 7 96 15 103/54(86) NSR 0 (11) 10(A) , No pain 9:08:48 59 8 97 0 97/51(78) NSR 0 (11) 10(A) , No pain 9:12:56 59 7 97 36 103/45(71) NSR 0 (11) 10(A) , No pain 9:17:06 57 8 98 0 90/48(69) NSR 0 (11) 10(A) , No pain 9:21:12 58 9 94 28.5 92/48(71) NSR 0 (11) 10(A) , No pain 9:25:18 60 9 91 10.5 92/51(72) NSR 0 (11) 10(A) , No pain 9:29:22 62 9 91 21 97/56(75) NSR 0 (11) 10(A) , No pain 9:33:29 62 9 87 30 102/48(80) NSR 0 (11) 10(A) , No pain 9:37:37 60 11 92 36.8 99/53(81) NSR 0 (11) 10(A) , No pain 9:41:43 61 9 90 24 97/55(78) NSR 0 (11) 10(A) , No pain 9:45:49 60 8 94 27 99/53(78) NSR 0 (11) 10(A) , No pain 9:49:55 60 9 93 30 99/52(76) NSR 0 (11) 10(A) , No pain 9:54:02 61 10 94 31.5 100/51(83) NSR 0 (11) 10(A) , No pain 9:58:10 63 8 95 35.3 98/52(74) NSR 0 (11) 10(A) , No pain 10:02:16 59 7 97 36 104/51(84) NSR 0 (11) 10(A) , No pain 10:06:26 60 5 96 33.8 101/50(84) NSR 0 (11) 10(A) , No pain 10:11:25 65 6 94 22.5 Measuring NSR 0 (11) 10(A) , No pain 10:11:31 65 13 97 29.2 125/61(96) NSR 0 (11) 10(A) , No pain Medications Time Medication Route Dose Verified Delivered Reason Notes Effec tiveness by by 8:28:23 Heparin Flush added 3 Alejandro Allen Per Bag to bags Uma Eaton protocol (1000units/500ml field MD OJEDA NS) 8:28:38 Lidocaine 1% added 20ml Alejandro Allen Per to vial Uma Eaton protocol field MD OJEDA 8:29:02 Oxygen etCO2 4 Alejandro Spicerine Per Nasal l/min Uma Sethi RN protocol cannula 8:31:04 zosyn I.V. 3.375 Alejandro Baron Per g Uma Gregg RN protocol 8:48:03 Versed I.V. 1 mg Alejandro aBron for Uma Gregg RN sedation 8:48:14 Fentanyl I.V. 50 Alejandro Baron for mcg Uma Gregg RN sedation 8:56:37 Versed I.V. 1 mg Alejandro Baron for Uma Gregg RN sedation 8:56:45 Fentanyl I.V. 50 Alejandro Baron for mcg Uma Gregg RN sedation 9:21:26 Versed I.V. 0.5 Alejandro Baron for mg Uma Gregg RN sedation 9:28:54 Nitroglycerin I.A. 200 Alejandro Allen used for IC/IA mcg Uma Eaton procedure MD OJDEA 9:52:17 Doxorubicin I.A. 100 Alejandro Allen used for mg Uma Eaotn procedure MD OJEDA Procedure Log Time Note 8:09:46 May Sethi RN sent for patient. Start room use. 8:09:55 Time tracking: Regular hours (M-F 7:00 - 5:00) 8:10:06 Plan of Care:Hemodynamics will remain stable., Cardiac rhythm will remain stable., Comfort level will be maintained., Respiratory function will remain adequate., Patient/ family verbilizes understanding of procedure., Procedure tolerated without complication., Recovers from procedure without complications.. 8:10:45 Patient received from Outpatients to IR Alert and oriented. Tansferred to table in Supine position. 8:10:47 Correct patient and procedure confirmed by team. 8:10:57 Signed procedure consent form obtained from patient. 8:10:58 Full Disclosure recording started 8:10:58 - 8:11:04 H&P Date Dictated: 12/20/2017 H&P Addendum completed by physician on day of procedure. (MUST COMPLETE FOR ALL OUTPATIENTS). 8:11:06 Pre-procedure instructions explained to patient. 8:11:06 Pre-op teaching completed and patient verbalized understanding. 8:11:08 Family in waiting room. 8:11:11 Patient NPO since Midnight. 8:11:26 Is the patient allergic to Iodine/contrast media? No. 8:11:27 Is patient on blood thinner?No 8:11:29 Patient diabetic? No. 8:11:31 ----Pre-sedation anethsthesia assessment.---- 8:11:35 Previous problem with sedation/anesthesia? No ? 8:11:37 Snore? Yes 8:11:38 Sleep apnea? No 8:11:40 Deviated septum? No 8:11:44 Opens mouth fully? Yes 8:11:45 Sticks out tongue? Yes 8:11:47 Airway obstruction? No ? 8:11:49 Dentures? No ? 8:11:55 Use device set IR Diagnostic 8:11:56 ACIST Syringe (93459) opened to sterile field. 8:11:56 ACIST Hand Control (60893) opened to sterile field. 8:11:57 ACIST Manifold (55400) opened to sterile field. 8:11:57 Bag Decanter (2002S) opened to sterile field. 8:11:58 Sterile Angiographic Pack opened to sterile field. 8:11:58 Tegaderm 4 x 4 (1626W) opened to sterile field. 8:17:44 ECG and BP/O2 sat monitors applied to patient. 8:17:50 Pre procedure: right dorsailis pedis pulse Doppler 8:17:55 Pre procedure: right posterior tibial pulse Doppler 8:17:59 Patient pain scale 0/10 no pain. 8:18:05 IV patent on arrival in left forearm with 0.9% NaCl at [facility]. 8:18:06 Alarms reviewed by R. N. 8:18:07 Sharps counted by scrub and verified by R.N. 8:18:11 Right groin area was prepped with chlora-prep and draped in sterile fashion 8:25:19 Vital chart was started 8:28:23 Heparin Flush Bag (1000units/500ml NS) 3 bags added to field was administered by Alejandro Eaton MD; Per protocol; 8:28:38 Lidocaine 1% 20ml vial added to field was administered by Alejandro escalera MD; Per protocol; 8:29:02 Oxygen 4 l/min etCO2 Nasal cannula was administered by May Sethi RN; Per protocol; 8:31:04 zosyn 3.375 g I.V. was administered by Loraine Gregg RN; Per protocol; 8:33:48 Baseline sample Acquired. 8:42:39 Physician arrived 8:42:40 --------ALL STOP TIME OUT------ 8:42:41 Final Timeout: patient, procedure, and site verified with staff and physician. All members of the team are in agreement. 8:42:43 Right groin site verified by team. 8:42:53 Sedation plan: IV Moderate Sedation Medication:Versed, Fentanyl 8:45:02 Procedure started. 8:45:06 Local anesthetic to right femoral artery with Lidocaine 1% by Alejandro Eaton MD.INITIAL ACCESS ONLY 8:45:16 Access obtained with 4Fr micropunture. 8:45:22 STOPCOCK 3-Way Large Bore (X74791) opened to sterile field. 8:45:22 SHEATH 5FR [place] (IUX178) opened to sterile field. 8:45:23 Micropuncture VSI 4FR kit opened to sterile field. 8:45:23 MovigoSON 145cm wire (L85928) opened to sterile field. 8:45:26 A Grama [employer] 5Fr SIM 1 Catheter ([id number]) was advanced over the wire and used for . 8:45:27 TUBING Contrast Injection High Pressure (BUT949L) opened to sterile field. 8:45:27 RENEGADE HI-THA microcatheter ([id number]) opened to sterile field. 8:45:28 TRANSEND STEERABLE wire ([id number]) opened to sterile field. 8:45:41 A 5 Fr sheath was inserted into the Right Femoral artery 8:48:03 Versed 1 mg I.V. was administered by Loraine Gregg RN; for sedation; 8:48:14 Fentanyl 50 mcg I.V. was administered by Loraine Gregg RN; for sedation ; 8:56:37 Versed 1 mg I.V. was administered by Loraine Gregg RN; for sedation; 8:56:45 Fentanyl 50 mcg I.V. was administered by Loraine Gregg RN; for sedation ; 8:57:08 COPILOT Valve Control (0087113) opened to sterile field. 9:21:26 Versed 0.5 mg I.V. was administered by Loraine Gregg RN; for sedation; 9:28:46 lc beads 70-150-um lot#[id number] 9:28:54 Nitroglycerin IC/IA 200 mcg I.A. was administered by Alejandro Eaton MD; used for procedure; 9:36:51 lc beads 70-150-um lot#[id number] 9:52:17 Doxorubicin 100 mg I.A. was administered by Alejandro Eaton MD; used for procedure; 9:58:27 EXOSEAL 5Fr (EX500) opened to sterile field. 9:58:31 Procedure ended.(Physican Out) 9:59:08 Fluoroscopy time 18.70 minutes. 9:59:14 Flurop Dose total: 574 9:59:14 Fluoroscopy dose: 574 mGy 9:59:29 Sharps counted by scrub and verified by R.N. 9:59:31 Insertion/operative site no bleeding no hematoma. 9:59:34 Post-op/insertion site Right Femoral artery dressed using a 4 x 4 and Tegaderm. 9:59:38 Post right femoral artery:stable 9:59:44 Post Procedure Pulses reassessed and unchanged 9:59:45 Post procedure instruction explained to patient.Patient verbalizes understanding. 9:59:46 Procedure and supply charges have been captured, reviewed, submitted an d are correct. 10:01:26 Contrast amount:Isovue 300 0ml. 10:13:17 Report given to Outpatients. 10:13:22 Patient transfered to Outpatients with Bed. 10:13:49 Vital chart was stopped Device Usage Item Name Manufacture Quantity Catalog Hospital Part [facility] Lot# / Number Charge Number Stock Stock Serial# Code ACIST Syringe Acist 1 78821 065358 507347 966219 20 (46875) Medical Systems Inc ACIST Hand Acist 1 63403 745533 926787 650554 5 Control Medical (75662) Systems Inc ACIST Acist 1 52753 093997 057016 645900 5 Manifold Medical (74922) Systems Inc Bag Decanter Microtek 1 507436 79639 575497 5 () Medical Inc. Sterile Cardinal 1 [id number] 731033 339466 5 Angiographic Health Pack Tegaderm 4 x 3M 1 1626W 276827 226939 922077 5 4 (1626W) STOPCOCK Se[employer]iew Medical 1 F21923 785257 0656 358442 5 [id number] 3-Way Large Bore (W39159) SHEATH 5FR Terumo 1 HZH895 128101 852714 946311 40 [place] (LOB959) Micropuncture VSI VASCULAR 1 7266V 722097 447525 5 VSI 4FR kit SOLUTIONS BENTSON 145cm Cook Medical 1 D42265 614409 521089 5 1037732 wire (I85515) Merit Impress Merit 1 [id number] 342062 231162 936256 5 5Fr SIM 1 Medical Catheter ([id number]) TUBING Merit 1 [id number] 070242 672835 054237 5 Contrast Medical Injection High Pressure (QJO436T) RENEGADE Skyforest 1 [id number] 317335 512393 5 [id number] HI-THA Scientific microcatheter ([id number]) TRANSEND [employer]forest 1 [id number] 380939 637056 5 [id number] STEERABLE Scientific wire ([id number]) COPILOT Valve [place] 1 6087010 104974 121875 739317 5 Control Vascular (5047124) EXOSEAL 5Fr Cardinal 1 EX500 540880 521548 742785 10 [id number] (EX500) Health Signature Audit [place] Stage Time Signature Unsigned Intra-Procedure 12/20/2017 Apolinar 10:13:46 AM Hung RT (R) (CV) Signatures Monitor : Apolinar Signature : Hung RT Date : Time : [facility] [address] [place] [address]
[~2017-12-20 06:00] MED LIST changes: -BENADRYL25 MG PO
[2017-12-20 06:41] LABS: BASOPHILS 0.9 % (0-2); EOSINOPHILS 3.3 % (0-7); HEMOGLOBIN 12.8 g/dL (12-16); IMMATURE GRANULOCYTES 0.2 % (0-5); LYMPHOCYTES 18.5 % (15-50); MCHC 33.7 g/dL (31.0-37.0); MCV 101.1 fL (80.0-100.0); MEAN PLATELET VOLUME 9.2 fL (7.4-10.4); MONOCYTES 11.4 % (2-11); NEUTROPHILS 65.7 % (40-80); PLATELET COUNT 163 10x3/uL (130-400); RBC 3.76 10x6/uL (4.00-5.40); RDW 12.2 % (11.5-14.5); WBC 6.7 10x3/uL (4.8-10.8)
[2017-12-20 06:54] LABS: APTT 33.2 SECONDS (22.8-39.4); INR 1.14 (0.85-1.17); PROTIME 14.2 SECONDS (11.6-15.0)
[2017-12-20] MEDS ORDERED: MIRALAX17 GM PO (07:06)
[2017-12-20] MEDS ORDERED: BENADRYL25 MG PO (07:12)
[2017-12-20 07:26] VITALS: BP 93/63; BMI 19.8
[2017-12-20 07:51] LABS: ALBUMIN 3.8 g/dL (3.4-5.0); BILIRUBIN - DIRECT 0.21 mg/dL (0.00-0.30); BILIRUBIN - INDIRECT 0.44 mg/dL (0.00-1.00); BILIRUBIN - TOTAL 0.65 mg/dL (0.2-1.3); PROTEIN - SERUM 7.9 g/dL (6.4-8.2)
[2017-12-20 07:52] LABS: ALBUMIN 3.6 g/dL (3.4-5.0); ANION GAP 13.4 mmol/L (8-16); BILIRUBIN - TOTAL 0.66 mg/dL (0.2-1.3); CREATININE - SERUM 1.2 mg/dL (0.6-1.3); POTASSIUM - SERUM 4.4 mmol/L (3.5-5.1); PROTEIN - SERUM 8.2 g/dL (6.4-8.2)
[2017-12-20 10:50] VITALS: BP 107/54; BMI 19.8
[2017-12-20 18:08] VITALS: Ht 160 cm; Wt 50.9 kg
[2017-12-20 19:53] VITALS: BP 125/59
[2017-12-20 23:54] VITALS: BP 108/49
[2017-12-21 04:00] VITALS: BP 112/65
[2017-12-21 08:11] VITALS: BP 112/73
== END 2017-12-21 11:06 | disposition home or self-care (01) ==
LOC: OBSVTIME → D.SDCHOLD 06:00 → D.OPS 06:00 → D.SP 08:00 → D.SDCHOLD 08:00 → EDSTATUS 08:00 → D.SDCHOLD 10:33 → D.MS 10:33 → D.OPS 12-21 11:06
PROVIDERS: Radiology Diagnostic Radiology
DX: C22.0 Liver cell carcinoma (principal); B19.20 Unspecified viral hepatitis C without hepatic coma; K74.60 Unspecified cirrhosis of liver; I10 Essential (primary) hypertension; I50.9 Heart failure, unspecified; K21.9 Gastro-esophageal reflux disease without esophagitis

== ENCOUNTER → 2018-01-09 08:59 | Outpatient (CLI) | payer MEDICARE, OTHER ==
[2017-12-20 18:08] VITALS: BMI 19.8
[~2018-01-09 08:59] MED LIST changes: +BENADRYL25 MG PO
[2018-01-09 09:42] LABS: ALBUMIN 3.4 g/dL (3.4-5.0); ANION GAP 12.9 mmol/L (8-16); BILIRUBIN - TOTAL 0.64 mg/dL (0.2-1.3); CALCIUM 9.1 mg/dL (8.5-10.1); CARBON DIOXIDE 26.7 mmol/L (21.0-32.0); POTASSIUM - SERUM 4.6 mmol/L (3.5-5.1); PROTEIN - SERUM 8.1 g/dL (6.4-8.2)
== END | disposition home or self-care (01) ==
LOC: D.LAB 08:59
PROVIDERS: Radiology Diagnostic Radiology
DX: C22.0 Liver cell carcinoma (principal)

== ENCOUNTER → 2018-02-26 07:00 | Outpatient (CLI) | payer MEDICARE, OTHER ==
[2017-12-20 18:08] VITALS: BMI 19.8
== END | disposition home or self-care (01) ==
LOC: D.CT 07:00
DX: C22.0 Liver cell carcinoma (principal)

== ENCOUNTER → 2018-06-19 09:34 | Outpatient (CLI) | payer MEDICARE, OTHER ==
[2017-12-20 18:08] VITALS: BMI 19.8
== END | disposition home or self-care (01) ==
LOC: D.CT 09:34
DX: C22.0 Liver cell carcinoma (principal)

== ENCOUNTER → 2018-10-03 14:02 | Outpatient (CLI) | payer MEDICARE, OTHER ==
[2017-12-20 18:08] VITALS: BMI 19.8
[2018-10-03 15:52] LABS: CREATININE - SERUM 1.2 mg/dL (0.6-1.3)
== END | disposition home or self-care (01) ==
LOC: D.CT 14:02
PROVIDERS: ATTEND Radiology Diagnostic Radiology
DX: C22.0 Liver cell carcinoma (principal)

== ENCOUNTER → 2019-02-05 13:16 | Outpatient (CLI) | payer MEDICARE, OTHER ==
[2017-12-20 18:08] VITALS: BMI 19.8
== END | disposition home or self-care (01) ==
LOC: D.CT 13:16
PROVIDERS: ATTEND Radiology Diagnostic Radiology
DX: C22.9 Malignant neoplasm of liver, not specified as primary or secondary (principal)

== ENCOUNTER → 2019-06-11 07:36 | Outpatient (CLI) | payer MEDICARE, OTHER ==
[2017-12-20 18:08] VITALS: BMI 19.8
== END | disposition home or self-care (01) ==
LOC: D.CT 07:36
PROVIDERS: ATTEND Radiology Diagnostic Radiology
DX: C22.0 Liver cell carcinoma (principal)